=== PATIENT | male | born 1980 | race African-American/Black ===

== ENCOUNTER 2017-08-09 10:23 | Emergency (ER) | payer BC ==
[~2017-08-09] VITALS: Ht 180.3 cm; Wt 181.4 kg
--- NOTE | 2017-08-09 10:51 | PHYS DOC ---
Past Medical History Past Medical History: Hypertension Additional Past Medical Histor: uncontrolled for 2 years Past Surgical History: Other Additional Past Surgical Histo: finger Alcohol Use: Heavy Drug Use: None Adult General Chief Complaint Chief Complaint: KNEE INJURY HPI HPI Patient is a 36 year old male presents to the emergency department with a history of left knee pain and discomfort for the last 3 weeks. 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 He denies recent falls or injury. Patient denies taking medication for the pain. He denies numbness or tingling in the foot. Review of Systems Review of Systems Constitutional: Denies fever or chills [] Eyes: Denies change in visual acuity, redness, or eye pain [] HENT: Denies nasal congestion or sore throat [] Respiratory: Denies cough or shortness of breath [] Cardiovascular: No additional information not addressed in HPI [] GI: Denies abdominal pain, nausea, vomiting, bloody stools or diarrhea [] : Denies dysuria or hematuria [] Musculoskeletal: Denies back pain. C/o left knee pain Integument: Denies rash or skin lesions [] Neurologic: Denies headache, focal weakness or sensory changes [] Endocrine: Denies polyuria or polydipsia [] Current Medications Current Medications Current Medications Medications (Trade) Dose Ordered Sig/Harvinder Start Time Stop Time Status Last Admin Dose Admin Ibuprofen (Motrin) 800 mg 1X ONCE 08/09/17 11:00 08/09/17 11:01 DC 08/09/17 11:12 800 MG Lisinopril (Prinivil) 10 mg 1X ONCE 08/09/17 11:00 08/09/17 11:01 DC 08/09/17 11:12 10 MG Allergies Allergies Allergies Coded Allergies Type Severity Reaction Last Updated Verified Penicillins Allergy Intermediate 05/13/14 Yes Physical Exam Physical Exam Constitutional: Well developed, well nourished, no acute distress, non-toxic appearance. [] HENT: Normocephalic, atraumatic, bilateral external ears normal, oropharynx moist, no oral exudates, nose normal. [] Eyes: PERRLA, EOMI, conjunctiva normal, no discharge. [] Neck: Normal range of motion, no tenderness, supple, no stridor. [] Cardiovascular:Heart rate regular rhythm, no murmur [] Lungs & Thorax: Bilateral breath sounds clear to auscultation [] Abdomen: Bowel sounds normal, soft, no tenderness, no masses, no pulsatile masses. [] Skin: Warm, dry, no erythema, no rash. [] Extremities: Left anterior, lateral and medial tenderness, no cyanosis, no clubbing, ROM intact, no edema. Peripheral pulses 2+ cap refill brisk < 2 seconds. Patient with full ROM of the left ankle. Neurologic: Alert and oriented X 3, normal motor function, normal sensory function, no focal deficits noted. [] Psychologic: Affect normal, judgement normal, mood normal. [] Current Patient Data Vital Signs Vital Signs Date Time Temp Pulse Resp B/P (MAP) Pulse Ox O2 Delivery O2 Flow Rate FiO2 08/09/17 11:12 97 205/88 08/09/17 10:30 98.4 18 98 Room Air 98.4 EKG EKG [] Radiology/Procedures Radiology/Procedures [][facility] [address] [place] [address] IMAGING REPORT Signed PATIENT: STEVE NGUYEN ACCOUNT: [id number] : 1980 LOCATION: ER AGE: 36 SEX: M EXAM STATUS: REG ER ORD. PHYSICIAN: CLINT JUDGE APRN REASON: left knee pain and discomfort, denies injury. Gives out, X 2 WEEKS PROCEDURE: KNEE LEFT 4V INDICATION: left knee pain and discomfort, denies injury. Gives out, X 2 WEEKS COMPARISON: None. IMPRESSION: Left knee: 4 views obtained. No definite acute fracture or dislocation. Mild degenerative changes with osteophyte formation is seen including within the medial compartment. DICTATED and SIGNED BY: ZACK COLLINS MD DATE: 08/09/17 1112 CC: CLINT JUDGE APRN; NO PCP; NON,STAFF ~ Course & Med Decision Making Course & Med Decision Making Pertinent Labs and Imaging studies reviewed. (See chart for details) Patients BP is elevated, however patient has HX of HTN does not take his medication and states he is out of the medication. He denies SOA, chest pain, tinnitus, THOMAS, blurred vision or lower extremity swelling. Patient states he had taken lisinopril. Patient's x-rays were negative for any bony abnormalities. Patient will be discharged home with recommendations for ice packs on several times a day. Also recommended the patient follow-up primary care physician in regards to his blood pressure. Patient with orthopedic name and number to follow up as well. Patient was recommended also help and discomfort. Recommend ice packs and elevation. Patient was placed in Ronnie wrap. He'll be discharged home in stable condition signs symptoms to return back to emergency department as been provided. Questions and concerns been answered at patient's bedside. [] Dragon Disclaimer Dragon Disclaimer This electronic medical record was generated, in whole or in part, using a voice recognition dictation system. Departure Departure Impression: Primary Impression: Left knee pain Disposition: HOME, SELF-CARE Condition: STABLE Referrals: NO PCP (PCP) Patient Instructions: Knee Pain, [id number] Additional Instructions: Activity as tolerated. Ibuprofen 800 mg every 8 hours . Wear the Ronnie wrap. Elevation as much as possible. Medications as prescribed for your blood pressure. Follow-up with orthopedics next week. Follow-up to primary care physician within the next week for further blood pressure management. Return to the emergency department for signs and symptoms of become worse. Problem Qualifiers Primary Impression: Left knee pain Chronicity: acute Qualified Codes: M25.562 - Pain in left knee CLINT JUDGE [employer]ACLE TECHNICAL DEVELOPER Aug 09, 2017 10:51
[2017-08-09] MEDS ORDERED: IBUPROFEN 800 MG TABLET. PO ONE (11:00)
[2017-08-09] MEDS ORDERED: LISINOPRIL 10 MG TABLET PO ONE (11:00)
--- NOTE | 2017-08-09 11:19 | RAD ---
INDICATION: left knee pain and discomfort, denies injury. Gives out, X 2 WEEKS COMPARISON: None. IMPRESSION: Left knee: 4 views obtained. No definite acute fracture or dislocation. Mild degenerative changes with osteophyte formation is seen including within the medial compartment.
[2017-08-09 11:46] VITALS: BP 176/88
[2017-08-09] MEDS ORDERED: LISI10TA2 PO (11:54)
== END 2017-08-09 11:56 | disposition home or self-care (01) ==
LOC: ER 10:23
DX: M25.562 Pain in left knee (principal); I10 Essential (primary) hypertension; F10.10 Alcohol abuse, uncomplicated; Z88.0 Allergy status to penicillin
CPT/HCPCS: 73564; 99284

== ENCOUNTER 2020-10-14 02:14 | Emergency (ER) | payer SELFPAY ==
[~2020-10-14] VITALS: Ht 180.3 cm; Wt 136.0 kg
[~2020-10-14 02:14] MED LIST: LISI10TA2 PO
[2020-10-14] MEDS ORDERED: OXYMETAZOLINE 0.05% NASAL SPRAY 30ML BOTTLE. NS ONE (02:45)
--- NOTE | 2020-10-14 02:50 | PHYS DOC ---
Past Medical History Past Medical History: Hypertension Additional Past Medical Histor: uncontrolled for 2 years Past Surgical History: Other Additional Past Surgical Histo: finger Smoking Status: Current Every Day Smoker Alcohol Use: Occasionally Additional Information: DRINKS ON THE WEEKENDS Drug Use: None General Adult EDM: Chief Complaint: NOSEBLEED HPI: HPI: Patient is a 40 year old male who arrives with a chief complaint of epistaxis. Has had intermittent nosebleeds over the last week and got worse about an hour prior to arrival. Patient states it is coming on the left nose and traction onto the right. Patient denies any recent illnesses such as fevers chills cough vomiting or diarrhea. Patient denies any trauma to the area. Patient does feel lightheaded with little shortness of breath. Review of Systems: Review of Systems: Constitutional: Denies fever or chills. [] Eyes: Denies change in visual acuity. [] HENT: Complains of epistaxis Respiratory: Denies cough but had some shortness of breath. [] Cardiovascular: Denies chest pain or edema. [] GI: Denies abdominal pain, nausea, vomiting, bloody stools or diarrhea. [] : Denies dysuria. [] Musculoskeletal: Denies back pain or joint pain. [] Integument: Denies rash. [] Neurologic: Denies headache, focal weakness or sensory changes. Patient had some dizziness [] Endocrine: Denies polyuria or polydipsia. [] Lymphatic: Denies swollen glands. [] Psychiatric: Denies depression or anxiety. [] Heart Score: Risk Factors: Risk Factors: DM, Current or recent (<one month) smoker, HTN, HLP, family history of CAD, obesity. Risk Scores: Score 0 - 3: 2.5% MACE over next 6 weeks - Discharge Home Score 4 - 6: 20.3% MACE over next 6 weeks - Admit for Clinical Observation Score 7 - 10: 72.7% MACE over next 6 weeks - Early Invasive Strategies Current Medications: Current Medications Medications (Trade) Dose Ordered Sig/Harvinder Start Time Stop Time Status Last Admin Dose Admin Oxymetazoline HCl (Afrin) 2 spray 1X ONCE 10/14/20 02:45 10/14/20 02:46 UNV Allergies: Allergies: Allergies Coded Allergies Type Severity Reaction Last Updated Verified Penicillins Allergy Intermediate 05/13/14 Yes Physical Exam: PE: Constitutional: Well developed, well nourished, no acute distress, non-toxic appearance. [] HENT: Normocephalic, atraumatic, bilateral external ears normal, mild amount of blood in the posterior oropharynx with bleeding from the left naris, cannot visualize where the site of the blood is originating from Eyes: PERRLA, EOMI, conjunctiva normal, no discharge. [] Neck: Normal range of motion, no tenderness, supple, no stridor. [] Cardiovascular:Heart rate regular rhythm, peripheral pulse intact cap refill is brisk Lungs & Thorax: Bilateral breath sounds clear, no respiratory distress Abdomen: soft, no tenderness, no masses, no pulsatile masses. [] Skin: Warm, dry, no erythema, no rash. [] Back: No tenderness, no CVA tenderness. [] Extremities: No tenderness, no cyanosis, no clubbing, ROM intact, no edema. [] Neurologic: Alert and oriented X 3, normal motor function, normal sensory function, no focal deficits noted. [] Psychologic: Affect normal, judgement normal, mood normal. [] Current Patient Data: Vital Signs: Vital Signs Date Time Temp Pulse Resp B/P (MAP) Pulse Ox O2 Delivery O2 Flow Rate FiO2 10/14/20 02:15 98.7 129 24 146/107 (120) 98 Room Air 98.7 EKG: EKG: [] Radiology/Procedures: Radiology/Procedures: [] Course & Med Decision Making: Course & Med Decision Making Pertinent Labs and Imaging studies reviewed. (See chart for details) [] When I first entered the room I was wearing a full PAPR and was ready packed the nose. I explained to the patient I want to get the bleeding stopped. Patient already had a clamp in place that was placed by the nurse prior to my arrival. Patient said he had to poop and explained I really like to place this before that so that we can get the bleeding under control and he refused. When I next saw the patient after he pooped he states he is now throwing up blood. I have ordered Afrin and a prolonged nasal clamping to be administered by the nurse. 3:15 AM: Procedure note Clinical procedure nasal packing Clinical indication: Left anterior epistaxis A 4.5 rapid Rhino was inserted into the left naris after administration of Afrin and clearing the nasal cavities and clamping the nose. Patient tolerated well. Patient reassessed 30 minutes after the nasal packing and no return of bleeding. Patient sitting up, tolerating p.o. and clinically improved 40-year-old male presents with epistaxis. Bleeding was controlled with a rapid Rhino. Patient will be placed on antibiotics and given Zofran and follow-up with ENT for packing removal. Dragon Disclaimer: Dragon Disclaimer: This electronic medical record was generated, in whole or in part, using a voice recognition dictation system. Departure Departure Impression: Primary Impression: Anterior epistaxis Disposition: 01 DC HOME SELF CARE/HOMELESS Condition: STABLE Referrals: NO PCP (PCP) LUCIA GILBERT MD Follow-up with Dr. Hardin or another ear nose and throat doctor in 48 to 72 hours for packing removal. Patient Instructions: Nosebleed Additional Instructions: EMERGENCY DEPARTMENT GENERAL DISCHARGE INSTRUCTIONS THANK YOU for coming to [facility] Emergency Department (ED) today and trusting us with your care. We trust that you had a positive experience in our Emergency Department. If you wish to speak to the department Management you can contact the painting department supervisor at . YOUR FOLLOW UP INSTRUCTIONS ARE FOLLOWS: Do you have a private doctor? If you do not have a private doctor, please ask for a resource list of physicians or clinics that may be able to assist you with follow up care. The Emergency Physician has interpreted your x-rays. The X-ray specialist will also review them. If there is a change in the findings you will be notified in 48 hours when at all possible. A lab test or lab culture may have been done, your results will be reviewed and you will be notified if you need a change in treatment. ADDITIONAL INSTRUCTIONS AND INFORMATION Your care today has been supervised by a physician who is specially trained in emergency care. Many problems require more than one evaluation for a complete diagnosis and treatment. We recommend that you schedule your follow up appointment as recommended to ensure complete treatment of your illness or injury. If you are unable to obtain follow up care and continue to have a problem, or if your condition worsens we recommend that you return to the ED. We are not able to safely determine your condition over the phone nor are we able to give sound medical advice over the phone. For these safety reasons, if you call for medical advice we will ask you to come to the ED for further evaluation If you have any questions regarding these discharge instructions please call the ED at . SAFETY INFORMATION In the interest of safety, wellness, and injury prevention; we encourage you to wear your seatbelt, if you smoke; quit smoking, and we encourage your family to use protective helmet for bicycling and other sporting events that present an increased risk for head injury. IF YOUR SYMPTOMS WORSEN OR NEW SYMPTOMS DEVELOP, OR YOU HAVE CONCERNS ABOUT YOUR CONDITION; OR IF YOUR CONDITION WORSENS WHILE YOU ARE WAITING FOR YOUR FOLLOW UP APPOINTMENT; EITHER CONTACT YOUR PRIMARY CARE DOCTOR, THE PHYSICIAN WHOSE NAME AND NUMBER YOU WERE GIVEN, OR RETURN TO THE ED IMMEDIATELY. Scripts Ondansetron (ONDANSETRON ODT) 4 Mg Tab.rapdis 1 TAB PO PRN Q6-8HRS PRN for NAUSEA, #5 TAB Prov: BRAULIO KESSLER MD 10/14/20 Clindamycin Hcl (CLINDAMYCIN HCL) 300 Mg Capsule 1 CAP PO QID, #20 CAP Prov: BRAULIO KESSLER MD 10/14/20 BRAULOI KESSLER MD Oct 14, 2020 02:50
[2020-10-14] MEDS ORDERED: ONDANSETRON ODT 4 MG TAB.RAPDIS. PO ONE (03:30)
[2020-10-14 03:34] VITALS: BP 134/96
[2020-10-14] MEDS ORDERED: CLIN300C9 PO (03:47)
[2020-10-14] MEDS ORDERED: ONDA4TAB12 PO (03:48)
== END 2020-10-14 04:10 | disposition home or self-care (01) ==
LOC: ER 02:14
DX: R04.0 Epistaxis (principal); R42 Dizziness and giddiness; R06.02 Shortness of breath; I10 Essential (primary) hypertension; F17.200 Nicotine dependence, unspecified, uncomplicated; Z98.890 Other specified postprocedural states; Z88.0 Allergy status to penicillin
CPT/HCPCS: 30901; 99284